=== PATIENT | male | born 1995 | race Caucasian/White ===

== ENCOUNTER 2016-09-29 12:12 | Emergency (ER) | payer SELFPAY ==
[2016-09-29 12:20] VITALS: BP 108/63; PULSE 85; RESP 16; TEMP 98.4; O2SAT 96
--- NOTE | 2016-09-29 12:27 | EDPHY ---
H & P Time Seen by Provider: 09/29/16 12:18 HPI/ROS: CHIEF COMPLAINT: Left hand laceration HISTORY OF PRESENT ILLNESS: 21-year-old male presents with left hand laceration. He was using a knife to open a box when he accidentally lacerated his left hand. Immediate onset of moderate pain and bleeding, both of which have subsided. No numbness or weakness in his hand or thumb. ROS: No numbness, weakness, excessive bleeding, syncopal episode, other injury. Smoking Status: Never smoked Physical Exam: Alert and oriented, pleasant Extremities: Left hand-there is a 2 cm linear superficial laceration on the thenar eminence Neuro: Motor intact to active resistance of the thumb;sensory intact to light touch Vascular: Capillary refill brisk distally. Constitutional: Initial Vital Signs Temperature (C) 36.9 C 09/29/16 12:13 Heart Rate 85 09/29/16 12:13 Respiratory Rate 16 09/29/16 12:13 Blood Pressure 108/63 09/29/16 12:13 O2 Sat (%) 96 09/29/16 12:13 O2 Delivery Mode Room Air Allergies/Adverse Reactions: No Known Allergies Allergy (Verified 09/29/16 12:19) Home Medications: Medication Instructions Recorded NK [No Known Home Meds] 09/29/16 Medical Decision Making Procedures: Procedure: Laceration repair. The 2 cm laceration on the left hand was anesthetized using lidocaine. The wound was irrigated, draped and explored to its base with a gloved finger. There were no deep structures involved. No foreign body palpable. The wound was repaired with 5 O Ethilon. The wound repair was simple. Departure - Departure Disposition: Home, Routine, Self-Care Clinical Impression: Laceration Condition: Good Instructions: Care For Your Stitches (ED), Laceration (ED) Additional Instructions: Suture removal in 10 days. Referrals: NONE *PRIMARY CARE P,. [Primary Care Provider] - As per Instructions
== END 2016-09-29 12:50 | disposition home or self-care (01) ==
LOC: CED 12:12
PROC: 0HQGXZZ Repair Left Hand Skin, External Approach (ICD-10-PCS; principal; 2016-09-29)
DX: S61.412A Laceration without foreign body of left hand, initial encounter (principal); W26.0XXA Contact with knife, initial encounter